=== PATIENT | female | born 1995 | race Asian ===

== ENCOUNTER 2020-04-13 13:52 | Inpatient (IN) | payer OTHER ==
[2020-04-13 15:12] VITALS: BMI 72.0
[2020-04-13] MEDS ORDERED: PROMETHAZINE HCL 25 MG/1 ML VIAL IVPUSH ONE (15:50)
[2020-04-13] MEDS ORDERED: BUTORPHANOL TARTRATE 1 MG/ML VIAL IVPB ONE (15:50)
[2020-04-13] MEDS ORDERED: ELECTROLYTE-148 SOLN 1,000 ML IV SCH (16:00)
[2020-04-13 16:28] LABS: BASO % 0.2 % (0-2.0); EOS % 0.2 % (0-4.5); HEMATOCRIT 33.3 % (32.4-45.2); HEMOGLOBIN 11.2 GM/dL (10.7-15.3); LYMPH % 12.2 % (8-40); MCH 28.9 pg (25.7-33.7); MCHC 33.6 g/dl (32.0-36.0); MEAN CELL VOLUME 85.9 fl (80-96); MONO % 5.2 % (3.8-10.2); NEUT % 82.2 % (42.8-82.8); PLATELET COUNT 232 K/MM3 (134-434); RBC 3.88 M/mm3 (3.60-5.2); RDW 12.7 % (11.6-15.6); WHITE BLOOD COUNT 11.9 K/mm3 (4.0-10.0)
[2020-04-13 16:35] LABS: INR 0.93 (0.83-1.09)
--- NOTE | 2020-04-13 16:35 | HP ---
Past Medical History - Primary Care Physician PCP:: Danette Max - Admission Chief Complaint: leakage of fluid since 9AM History Source: Patient Limitations to Obtaining History: No Limitations - Past Medical History ...: 1 ...LMP: 07/21/19 ... Weeks Gestation by Dates: 38.1 ...EDC by Dates: 04/26/20 - Past Surgical History Past Surgical History: Yes: None Hx Myomectomy: No Hx Transabdominal Cerclage: No - Smoking History Smoking history: Never smoked Have you smoked in the past 12 months: No - Alcohol/Substance Use Hx Alcohol Use: No Home Medications - Allergies Allergies/Adverse Reactions: Allergies Allergy/AdvReac Type Severity Reaction Status Date / Time No Known Allergies Allergy Verified 04/13/20 15:17 - Home Medications Home Medications: Ambulatory Orders Tablet 1 tablet PO DAILY 04/13/20 Review of Systems - Review of Systems Constitutional: reports: No Symptoms Cardiovascular: reports: No Symptoms Respiratory: reports: No Symptoms Gastrointestinal: reports: Abdominal Pain Genitourinary: reports: No Symptoms Breasts: reports: No Symptoms Reported Musculoskeletal: reports: No Symptoms Psychiatric: reports: No Symptoms Physical Exam - Maternity Vital Signs: Vital Signs Temperature 98.3 F 04/13/20 15:03 Pulse Rate 94 H 04/13/20 15:03 Respiratory Rate 18 04/13/20 15:03 Blood Pressure 109/73 04/13/20 15:03 O2 Sat by Pulse Oximetry (%) Constitutional: Yes: No Distress, Calm Cardiovascular: Yes: Regular Rate and Rhythm Lungs: Clear to auscultation - Abdominal Exam/OB Fundal Height: 38 Number of Fetuses: Single Presentation: Vertex Contractions: Yes Regularity: Regular Intensity: Mild/Mod Monitor Mode: External Category: I Accelerations: Uniform Decelerations: None - Vaginal Exam/OB Vaginal Bleeding: No Dilatation (cm): 2 Effacement (%): 90 Amniotic Membrane Status: Ruptured Nitrazine Test: Positive Amniotic Fluid: Yes: Clear Presentation: Vertex/Position Station: -3 - Physical Exam Musculoskeletal: Yes: WNL Extremities: Yes: WNL Edema: No Psychiatric: Yes: Alert, Oriented - Labs Lab Results: CBC, BMP 04/13/20 16:10 Assessment/Plan 24 y/o at 38w1d in early labor s/p SROM. Admit to L&D EFM and toco Pain management Pitocin as needed Reassess
[2020-04-13 16:38] LABS: ACTIVATED PTT 25.1 SECONDS (25.2-36.5)
[2020-04-13 17:04] LABS: BLOOD UREA NITROGEN 4.6 mg/dL (7-18); CALCIUM 8.7 mg/dL (8.5-10.1); CREATININE 0.5 mg/dL (0.55-1.3); POTASSIUM 3.7 mmol/L (3.5-5.1)
[2020-04-13] MEDS ORDERED: BUTORPHANOL TARTRATE 2 MG/ML VIAL ONE (21:15)
[2020-04-13] MEDS ORDERED: PROMETHAZINE HCL 25 MG/1 ML VIAL ONE (21:16)
[2020-04-13] MEDS ORDERED: PCA PUMP NR ONE (21:49)
[2020-04-13] MEDS ORDERED: FENTANYL/BUPIVACAINE/NS/PF - PCEA - 50 ML DISP.SYRIN EP ONE (21:50)
[2020-04-13] MEDS ORDERED: LIDO 2%/EPI 1:200000 PRESRVFRE (20 ML SDVIAL) ONE (22:26)
[2020-04-14] MEDS ORDERED: NALOXONE HCL 0.4 MG/ML VIAL IVPUSH PRN (00:57)
[2020-04-14] MEDS ORDERED: FENTANYL/BUPIVACAINE/NS/PF - PCEA - 50 ML DISP.SYRIN EP SCH (01:00)
[2020-04-14] MEDS ORDERED: OXYTOCIN 20 UNITS in 0.9% NS 20 UNIT/1,000 ML INFUS.BAG IV ONE ×2 (02:06→07:01)
[2020-04-14] MEDS ORDERED: LIDOCAINE HCL 1% PRESERVATIVE FREE - 30ML VIAL ONE (02:06)
[2020-04-14] MEDS ORDERED: FENTANYL/BUPIVACAINE/NS/PF - PCEA - 50 ML DISP.SYRIN EP ONE (02:08)
[2020-04-14] MEDS ORDERED: METHYLERGONOVINE MALEATE 0.2 MG/1 ML AMP IM PRN (04:43)
[2020-04-14] MEDS ORDERED: BENZOCAINE 20% 57 GM BOTTLE TP PRN (04:43)
[2020-04-14] MEDS ORDERED: WITCH HAZEL 50% (TUCKS) 40 PAD/JAR PAD TP PRN (04:43)
[2020-04-14] MEDS ORDERED: BENZOCAINE 28 GM HEMORRHOIDAL OINTMENT TP PRN (04:43)
[2020-04-14] MEDS ORDERED: BISACODYL 10 MG SUPP.RECT RC PRN (04:43)
--- NOTE | 2020-04-14 04:43 | PN ---
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
[2020-04-14] MEDS: PRENATAL VITAMINS W/ FOLIC ACID TABLET (FP) PO SCH (10:00)
[2020-04-14] MEDS ORDERED: IBUPROFEN 600 MG TABLET (FP) PO ONE (10:50)
[2020-04-14] MEDS: IBUPROFEN 600 MG TABLET (FP) PO PRN ×2 (11:00→18:29)
[2020-04-14] MEDS: ACETAMINOPHEN 325 MG TABLET (FP) PO PRN (18:30)
[2020-04-15 07:51] LABS: HEMATOCRIT 31.2 % (32.4-45.2); HEMOGLOBIN 10.4 GM/dL (10.7-15.3)
[2020-04-15 08:00] LABS: BASO % 0.2 % (0-2.0); EOS % 0.8 % (0-4.5); LYMPH % 18.5 % (8-40); MCH 28.6 pg (25.7-33.7); MCHC 33.3 g/dl (32.0-36.0); MEAN CELL VOLUME 85.9 fl (80-96); MEAN PLT VOLUME 8.8 fl (7.5-11.1); MONO % 7.1 % (3.8-10.2); NEUT % 73.4 % (42.8-82.8); PLATELET COUNT 209 K/MM3 (134-434); RBC 3.63 M/mm3 (3.60-5.2); RDW 12.6 % (11.6-15.6); WHITE BLOOD COUNT 13.3 K/mm3 (4.0-10.0)
[2020-04-15] MEDS: IBUPROFEN 600 MG TABLET (FP) PO PRN (08:36)
[2020-04-15] MEDS: ACETAMINOPHEN 325 MG TABLET (FP) PO PRN (08:37)
[2020-04-15] MEDS: PRENATAL VITAMINS W/ FOLIC ACID TABLET (FP) PO SCH (09:56)
--- NOTE | 2020-04-15 13:41 | PN ---
Post Progress Note Post Day: 1 Type of Delivery: Spon Vaginal Breech Vital Signs: Vital Signs Temperature 98.3 F 04/14/20 21:08 Pulse Rate 96 H 04/14/20 21:08 Respiratory Rate 20 04/14/20 21:08 Blood Pressure 103/67 04/14/20 21:08 O2 Sat by Pulse Oximetry (%) 100 04/14/20 05:30 Breast Exam: Yes: Soft Uterus: Yes: Fundus Firm, Fundus below umbilicus, Non-tender Abdomen/GI: Yes: Abdomen soft, Tolerating PO Lochia: Yes: Rubra Lochia, amount: Small Extremities: Yes: Calves non-tender Perineum: Yes: Laceration Activity: Ambulating - Labs Labs: CBC WBC 13.3 K/mm3 (4.0-10.0) H 04/15/20 07:00 RBC 3.63 M/mm3 (3.60-5.2) 04/15/20 07:00 Hgb 10.4 GM/dL (10.7-15.3) L 04/15/20 07:00 Hct 31.2 % (32.4-45.2) L 04/15/20 07:00 MCV 85.9 fl (80-96) 04/15/20 07:00 MCH 28.6 pg (25.7-33.7) 04/15/20 07:00 MCHC 33.3 g/dl (32.0-36.0) 04/15/20 07:00 RDW 12.6 % (11.6-15.6) 04/15/20 07:00 Plt Count 209 K/MM3 (134-434) 04/15/20 07:00 MPV 8.8 fl (7.5-11.1) 04/15/20 07:00 Absolute Neuts (auto) 9.7 K/mm3 (1.5-8.0) H 04/15/20 07:00 Neutrophils % 73.4 % (42.8-82.8) 04/15/20 07:00 Lymphocytes % 18.5 % (8-40) D 04/15/20 07:00 Monocytes % 7.1 % (3.8-10.2) 04/15/20 07:00 Eosinophils % 0.8 % (0-4.5) D 04/15/20 07:00 Basophils % 0.2 % (0-2.0) 04/15/20 07:00 Nucleated RBC % 0 % (0-0) 04/15/20 07:00 Assessment/Plan S/P . ppd # 1. stable Urticarial and plaques on abdomen Discharge home, follow up in 1 week at clinic.
--- NOTE | 2020-04-15 13:44 | DS ---
Physical Exam-CARE ATTENDANT Vital Signs: Vital Signs Temperature 98.3 F 04/14/20 21:08 Pulse Rate 96 H 04/14/20 21:08 Respiratory Rate 20 04/14/20 21:08 Blood Pressure 103/67 04/14/20 21:08 O2 Sat by Pulse Oximetry (%) 100 04/14/20 05:30 Constitutional: Yes: Well Nourished Eyes: Yes: WNL HENT: Yes: WNL Neck: Yes: WNL Cardiovascular: Yes: WNL Respiratory: Yes: WNL Gastrointestinal: Yes: WNL ...Rectal Exam: Yes: WNL Renal/: Yes: WNL Pelvis: Yes: WNL External Genitalia: Yes: Normal Vaginal Exam: Yes: Normal Cervix: Yes: Normal Uterus: Yes: Normal Adnexa: Normal: Bilateral ....Post : Yes: Uterus firm, Uterus non-tender, Slight lochia rubra Breast(s): Yes: WNL Musculoskeletal: Yes: WNL Extremities: Yes: WNL Edema: No Integumentary: Yes: WNL Neurological: Yes: WNL ...Motor Strength: WNL Psychiatric: Yes: WNL Labs: CBC, BMP 04/15/20 07:00 04/13/20 16:10 Delivery - Delivery Vaginal Delivery: No Problems Type of Anesthesia: Epidural Episiotomy/Laceration: Perineal Extension/lac, 1st degree EBL (cc): 300 Delivery, Single - Stages of Labor Date 1st Stage Initiatied: 04/13/20 Time 1st Stage Initiated: 09:00 Date 2nd Stage Initiated: 04/14/20 Time 2nd Stage Initiated: 03:35 Date of Delivery: 04/14/20 Time of Delivery: 04:16 Time Placenta Delivered: 04:26 Placenta: Yes: Spontaneous - Condition of Brickmason Helper/Grades 1 Thru 5 Teacher Present: No Gender: Female Weight: 3.033 kg Position: Left, OA Total Hours ROM (Hrs/Mins): 19 hrs - 1 Minute Total Score: 9 5 Minutes Total Score: 9 - Feeding Plan Initial Plan: Elected not to breastfeed exclusively throughout hospitalization Discharge Summary Problems reviewed: Yes Reason For Visit: LABOR ADMISSION Condition: Stable - Instructions Disposition: HOME - Home Medications Comprehensive Discharge Medication List: Ambulatory Orders Tablet 1 tablet PO DAILY 04/13/20
[2020-04-15 14:19] VITALS: BP 106/67; PULSE 91; TEMP 98.2
[2020-04-15] MEDS ORDERED: SENNOSIDES/DOCUSATE COMBO (SENNA PLUS) TABLET (UD) PO PRN (22:00)
== END 2020-04-15 15:10 | disposition home or self-care (01) | DRG 560 ==
LOC: JLDR 13:52 → J3W 04-14 14:05
PROVIDERS: ADMIT Obstetrics & Gynecology; ATTEND Obstetrics & Gynecology
PROC: 10E0XZZ Delivery of Products of Conception, External Approach (ICD-10-PCS; principal; 2020-04-14)
DX: O80 Encounter for full-term uncomplicated delivery (principal); Z3A.38 38 weeks gestation of pregnancy; Z37.0 Single live birth
CPT/HCPCS: 36415; 59409; 80048; 85025; 85610; 85730; 86762; 86780; 86850; 86900; 86901; 87340; 87389; U0003